=== PATIENT | female | born 2000 ===

== ENCOUNTER 2023-03-24 00:24 | Day surgery (SDC) | payer OTHER ==
[2023-03-24] MEDS ORDERED: hydrALAZINE 20 MG/ML VIAL SLOW IVP PRN (01:11)
== END 2023-03-24 01:30 | disposition home or self-care (01) ==
LOC: CSHLD/OP 00:24
PROVIDERS: ATTEND Student in an Organized Health Care Education/Training Program
DX: Z36.89 Encounter for other specified antenatal screening (principal); O99.013 Anemia complicating pregnancy, third trimester; D64.9 Anemia, unspecified; Z3A.40 40 weeks gestation of pregnancy
CPT/HCPCS: 99282

== ENCOUNTER 2023-03-24 19:50 | Inpatient (IN) | payer OTHER ==
[~2023-03-24 19:50] MED LIST: Bupivacaine 0.25% HCL 30 ML VIAL ONE
[2023-03-24 20:13] VITALS: BMI 28.3
[2023-03-24] MEDS ORDERED: Methylergonovine 0.2 MG/ML VIAL IM PRN (20:36)
[2023-03-24] MEDS ORDERED: Carboprost 250 MCG/ML AMP IM PRN (20:36)
[2023-03-24] MEDS ORDERED: Lidocaine 1% (PF) 30 ML VIAL SC PRN (20:36)
[2023-03-24] MEDS ORDERED: Ibuprofen 800 MG TAB PO PRN (20:36)
[2023-03-24] MEDS ORDERED: Tranexamic Acid 1,000 MG/10 ML VIAL IVP PRN (20:36)
[2023-03-24] MEDS ORDERED: Misoprostol 200 MCG TAB PR PRN (20:36)
[2023-03-24] MEDS ORDERED: hydrALAZINE 20 MG/ML VIAL SLOW IVP PRN (20:36)
[2023-03-24] MEDS ORDERED: Ondansetron PF 4 MG/2 ML Vial IVP PRN (20:36)
[2023-03-24] MEDS ORDERED: Acetaminophen 500 MG TAB PO PRN (20:36)
[2023-03-24] MEDS ORDERED: Promethazine HCl 25 MG/ML VIAL IM PRN (20:36)
[2023-03-24 20:43] LABS: Fetal Membranes Rupture RUPTURE DETECTED (No Rupture)
[2023-03-24] MEDS ORDERED: Lactated Ringer's 1,000 ML IV SCH (20:45)
[2023-03-24] MEDS ORDERED: Oxytocin 30 units/NS 500 ML 500 ML IV SCH ×2 (20:45)
[2023-03-24 21:21] LABS: Hematocrit 41.9 % (34.9-44.5); Hemoglobin 14.5 g/dL (12.0-15.5); Mean Corpuscular HGB CONC 34.6 g/dL (32.0-36.0); Mean Corpuscular Hemoglobin 29.7 pg (27.0-33.0); Mean Corpuscular Volume 85.7 fl (81.6-98.3); Mean Platelet Volume 10.9 fl (7.4-10.4); Platelet Count 196 10x3/uL (150-450); RBC Distribution Width 13.5 % (11.5-14.5); Red Blood Cell (RBC) Count 4.89 10x6/uL (3.90-5.03); White Blood Cell (WBC) Count 15.4 10x3/uL (3.5-10.5)
[2023-03-24 22:49] LABS: Syphilis Antibody Nonreactive (Nonreactive); Syphilis Antibody Index 0.05 S/CO (<1.00 Non-Reactive)
[2023-03-24 22:50] LABS: HBSAg Index 0.19 S/CO (0-0.99); Hep B Surf Ag - L&D Non-Reactive S/CO (NonReactive)
[2023-03-25] MEDS ORDERED: fentaNYL/Ropivacaine Epidural 100 ML ONE (00:43)
[2023-03-25] MEDS ORDERED: Ondansetron PF 4 MG/2 ML Vial IVP PRN ×2 (01:17→07:32)
[2023-03-25] MEDS ORDERED: Moisturizing Cream (Eucerin) 113 GM JAR TOP PRN (01:17)
[2023-03-25] MEDS ORDERED: diphenhydrAMINE 50 MG/ML VIAL IVP PRN (01:17)
[2023-03-25] MEDS ORDERED: Promethazine HCl 25 MG/ML VIAL IM PRN ×2 (01:17→07:32)
[2023-03-25] MEDS ORDERED: Lactated Ringer's 500 ML IV PRN (01:17)
[2023-03-25] MEDS ORDERED: ePHEDrine Sulfate 50 MG/10 ML VIAL SLOW IVP PRN (01:17)
[2023-03-25] MEDS ORDERED: Naloxone HCl 0.4 mg/ml Vial IVP PRN ×2 (01:17)
[2023-03-25] MEDS ORDERED: Acetaminophen 325 MG TAB PO PRN (01:17)
[2023-03-25] MEDS ORDERED: fentaNYL 2 mcg/Ropivacaine 0.2% Epidural 100 ML CADD EPIDURAL SCH (01:30)
[2023-03-25] MEDS ORDERED: Communication Order-Pharmacy FS SCH (01:30)
[2023-03-25] MEDS ORDERED: Milk Of Magnesia 30 ML UDCUP PO PRN (07:32)
[2023-03-25] MEDS ORDERED: Bisacodyl 10 MG SUPP PR PRN (07:32)
[2023-03-25] MEDS ORDERED: Oxytocin 30 units/NS 500 ML 500 ML IV SCH (07:32)
[2023-03-25] MEDS ORDERED: Methylergonovine 0.2 MG/ML VIAL IM PRN (07:32)
[2023-03-25] MEDS ORDERED: Benzocaine-Menthol 82.5 ML CAN TOP PRN (07:32)
[2023-03-25] MEDS ORDERED: Boostrix 0.5 ML (Tdap) VIAL (>/=7 yrs of age) IM ONE (07:32)
[2023-03-25] MEDS ORDERED: Misoprostol 200 MCG TAB VAG PRN (07:32)
[2023-03-25] MEDS ORDERED: Lanolin Ointment 7 GM TUBE TOP PRN (07:32)
[2023-03-25] MEDS ORDERED: hydrALAZINE 20 MG/ML VIAL SLOW IVP PRN (07:32)
[2023-03-25] MEDS: Docusate 100 MG CAP PO SCH ×3 (09:21→21:16)
[2023-03-25] MEDS: Prenatal Vitamin 1 TAB PO SCH (09:21)
[2023-03-25] MEDS: Ferrous Sulfate 325 MG TAB PO SCH ×2 (09:21→15:22)
[2023-03-25] MEDS: Ibuprofen 800 MG TAB PO SCH ×2 (13:01→21:16)
[2023-03-26] MEDS: Ibuprofen 800 MG TAB PO SCH ×2 (05:00→13:50)
[2023-03-26 05:11] VITALS: TEMP 98.1
[2023-03-26 07:47] VITALS: BP 106/66
[2023-03-26] MEDS: Prenatal Vitamin 1 TAB PO SCH (08:44)
[2023-03-26] MEDS: Docusate 100 MG CAP PO SCH (08:44)
[2023-03-26] MEDS: Ferrous Sulfate 325 MG TAB PO SCH ×2 (08:50→18:21)
== END 2023-03-26 19:50 | disposition home or self-care (01) | DRG 807 ==
LOC: CSHLD/OP 19:50 → CSHLD 20:36 → CSHPP 03-25 08:15
PROVIDERS: ADMIT Student in an Organized Health Care Education/Training Program; ATTEND Student in an Organized Health Care Education/Training Program
PROC: 10D07Z6 Extraction of Products of Conception, Vacuum, Via Natural or Artificial Opening (ICD-10-PCS; principal; 2023-03-25)
PROC: 0HQ9XZZ Repair Perineum Skin, External Approach (ICD-10-PCS; 2023-03-25)
PROC: 0UQMXZZ Repair Vulva, External Approach (ICD-10-PCS; 2023-03-25)
PROC: 3E033XZ Introduction of Vasopressor into Peripheral Vein, Percutaneous Approach (ICD-10-PCS; 2023-03-25)
DX: O48.0 Post-term pregnancy (principal); Z37.0 Single live birth; Z3A.40 40 weeks gestation of pregnancy; O70.0 First degree perineal laceration during delivery; O71.82 Other specified trauma to perineum and vulva
CPT/HCPCS: 84112; 85027; 86780; 86850; 86900; 86901; 87340; 88307; S0020